=== PATIENT | female | born 1955 | race Asian ===

== ENCOUNTER 2024-10-31 10:27 | Emergency (ER) | payer OTHER, SELFPAY ==
[2024-10-31 10:38] VITALS: BP 159/64
[2024-10-31 11:13] VITALS: BP 129/61
--- NOTE | 2024-10-31 12:16 | ED.GENMED ---
History of Present Illness
General
Chief Complaint: Fainting/Passed Out
Source: patient
Exam Limitations: none
Time Seen by Provider: 10/31/24 11:12
Nursing documentation reviewed up to this point in time: agreed with
History of Present Illness
History of Present Illness:
69-year-old female with history of NIDDM, HTN is here for syncopal episode
Patient states that 2:30 AM she had 'rumbling, upheaval, cramping', went to the bathroom and had a good bowel movement and the cramping went away, she stood up, pulled up her pajama bottoms and the next thing she knows she is on the floor with her
calling her name. Her heard her fall and was there immediately. She states she hit the back of her head and that area is sore but she does not have a general headache. She said shortly after that she got up and she had an episode
of diarrhea, states she did not feel well, she was not steady on her feet so she asked her if she could lay in the hallway for a while and he brought her some water. She drank some water and after about 15 minutes was able to get up and
ambulate back to the bedroom.
The left side of her neck is starting to hurt but other than that she has no bony neck pain. She denies chest pain or trouble breathing. She feels back to normal other than the fact that the back of her head hurts a little.
Past History
Past History
ED Past Medical History: HTN and NIDDM
ED Past Surgical History: Other (Cataract surgery)
Social History
Tobacco: Non-smoker
Alcohol: Occasional
Personal:
Living: with family
Employment: Retired
Review of Systems
Review of Systems
Allergies reviewed?: Yes
All Other Systems: ROS reviewed and negative except as documented in HPI and ROS
Constitutional: Denies fever or fatigue
Respiratory: Denies trouble breathing
Cardiac: Reports syncope; Denies chest pain
ABD/GI: Reports diarrhea; Denies abdominal pain, nausea, vomiting, bloody stools or black stools
: Denies dysuria, frequency, incontinence or urgency
Musculoskeletal: Reports neck pain (right side neck starting to get sore); Denies back pain
Skin: Reports no symptoms
Neurological: Reports no symptoms
Phy Exam
Physical Exam
Physical Exam:
GENERAL: No acute distress. A&Ox3.
CONSTITUTIONAL: Afebrile.
HEADL NC/AT
EYES: clear, conjunctivae normal
ENMT: moist mucus membranes, Pharynx nl
RESPIRATORY: Regular respirations, nonlabored, lungs clear.
CARDIOVASCULAR: Regular rate and rhythm, no murmurs, no rubs.
GI: Soft, nontender, normal BS
MUSCULOSKELETAL: Moves with ease. Well perfused.
SKIN: Warm, dry, normal
PSYCH: Normal mood and affect. Well kept, interactive and appropriate
NEUROLOGIC: Awake, alert and oriented. No focal neurological deficits
Course
Orders/Labs/Results
Orders:
Orders
10/31/24 10:43
EKG [Electrocardiogram (*1)] Urgent
Reason for Study: Syncope
EKG- Treatment ONCE
10/31/24 11:39
Orthostatic VS- Treatment ONCE
0.9% Sodium Chloride 1000 ml [Nss] 1,000 ml IV BOLUS
10/31/24 12:02
Complete Blood Count/With Diff Urgent
Comprehensive Metabolic Panel Urgent
Urinalysis Reflex To Culture Urgent
Date Specimen was Collected: 10/31/24
Time Specimen was Collected: 11:57
Abnormal Lab Results
10/31/24
12:02
RBC 3.87 L 10^6/uL
(4.20-5.40)
Hgb 11.9 L g/dL
(12.0-16.0)
Hct 35.9 L %
(37.0-47.0)
BUN 21 H mg/dl
(7-17)
Glucose 100 H mg/dl
(70-99)
10/31/24 12:02
10/31/24 12:02
Vital Signs
Initial and Last Documented VS:
Initial Vital Signs
Temp Pulse Resp BP Pulse Ox
98.7 F 68 18 159/64 100
10/31/24 10:38 10/31/24 10:38 10/31/24 10:38 10/31/24 10:38 10/31/24 10:38
Last Documented Vital Signs
Temp Pulse Resp BP Pulse Ox
98.7 F 50 13 139/62 100
10/31/24 10:38 10/31/24 12:45 10/31/24 12:45 10/31/24 12:25 10/31/24 12:25
MDM/Problems Addressed
Differential Diagnosis Includes:
vasovagal episode with BM, diarrhea
Dehydration
MDM/Problems Addressed:
69-year-old female with history of NIDDM, HTN is here for syncopal episode
Patient states that 2:30 AM she had 'rumbling, upheaval, cramping', went to the bathroom and had a good bowel movement and the cramping went away, she stood up, pulled up her pajama bottoms and the next thing she knows she is on the floor with her
calling her name. Her heard her fall and was there immediately. She states she hit the back of her head and that area is sore but she does not have a general headache. She said shortly after that she got up and she had an episode
of diarrhea, states she did not feel well, she was not steady on her feet so she asked her if she could lay in the hallway for a while and he brought her some water. She drank some water and after about 15 minutes was able to get up and
ambulate back to the bedroom.
The left side of her neck is starting to hurt but other than that she has no bony neck pain. She denies chest pain or trouble breathing. She feels back to normal other than the fact that the back of her head hurts a little.
Afebrile, NAD. Vital signs stable
EKG: NSR
12:15 PM:
Blood work drawn, unable to get IV in, patient is drinking an entire bottle of water so IV fluids are not necessary.
1:00 PM:
Orthostatics negative
CBC with no clinically significant abnormality
CMP normal
UA negative
History and exam is most consistent with a vasovagal episode. Patient is stable for discharge. She has been out of bed and ambulating well.
*EKG
EKG Intrepretation Date: 10/31/24
Interpretation: normal
Heart Rate: 61
Rate: normal
Rhythm: sinus
Beulah: normal axis
Interval: normal interval
QRS Pattern: normal QRS
Ischemia: no ischemia
*Critical Care Note
Total Time (30-74mins, 75-104mins- exclusive of procedures): Not Applicable
ED Attending Note
-
Portions of this chart may have been created with voice recognition software.� Occasional wrong word or��sound alike� substitutions may have occurred due to the inherent limitations of voice recognition software.
Discharge Plan
Departure
Patient Disposition: Home (Routine Discharge)
Date of Disposition: 10/31/24
Time of Disposition: 12:54
Patient with high blood pressure during this ER visit?: No
Condition: Good
Discharge Problem:
Vasovagal syncope
Instructions: Syncope (fainting), Vasovagal Response (DC)
Referrals:
Dakota Castillo, DO [Family Provider, Family Practice] - As needed
Activity Restrictions/Additional Instructions:
As we discussed, your workup here shows nothing worrisome.
You most likely had a vasovagal fainting episode due to your abdominal cramping/bowel movement and diarrhea.
Interventions
Interventions:
*Risk Screen - Suicide Last Done: 10/31/24 10:38
*General Assessment Last Done: 10/31/24 10:38
*Neglect/Abuse Screening Last Done: 10/31/24 10:38
*ED- Fall Risk Assessment Last Done: 10/31/24 11:25
*ED COVID-19 Vaccine History Last Done: 10/31/24 11:25
*Nursing Disposition Last Done: 10/31/24 13:16
ED- Cardiac Assessment Last Done: 10/31/24 11:25
ED- Neurological Assessment Last Done: 10/31/24 11:25
Discharge Date and Time
Discharge Date/Time: 10/31/24 13:05
Print Language: FRENCH
[2024-10-31 12:22] VITALS: BP 145/57
[2024-10-31 12:22] LABS: % Eosinophils 1.6 % (0-6); % Immature Granulocytes 0.3 % (0-0.5); % Lymphocytes 28.9 % (20.5-51.1); % Monocytes 6.9 % (1.7-9.3); % Neutrophils 61.3 % (42.2-75.2); Absolute Basophils 0.1 10^3/uL (0-0.2); Absolute Eosinophils 0.1 10^3/uL (0-0.7); Absolute Lymphocytes 2.1 10^3/uL (1.2-3.4); Absolute Monocytes 0.5 10^3/uL (0.1-0.6); Absolute Neutrophils 4.5 10^3/uL (1.4-6.5); Hematocrit 35.9 % (37.0-47.0); Hemoglobin 11.9 g/dL (12.0-16.0); Mean Corp Hgb Conc. 33.1 g/dL (33.0-37.0); Mean Corpuscular Hgb 30.7 pg (27.0-31.0); Mean Corpuscular Volume 92.8 fL (81.0-99.0); Mean Platelet Volume 8.3 fL (7.4-10.4); Nucleated Red Blood Cells % 0 %; Platelet Count 328 10^3/uL (130-400); Red Blood Cell Count 3.87 10^6/uL (4.20-5.40); Red Cell Dist. Width 12.2 % (11.5-14.5); White Blood Cell Count 7.3 10^3/uL (4.8-10.8)
[2024-10-31 12:23] VITALS: BP 148/62
[2024-10-31 12:25] VITALS: BP 139/62
[2024-10-31 12:28] VITALS: BP 139/62; BP 145/57; BP 148/62; PULSE 55; PULSE 57; PULSE 58
[2024-10-31 12:38] LABS: Urine Albumin Negative (Neg - Trace); Urine Bilirubin Negative (Negative); Urine Character Clear (Clear); Urine Color Yellow; Urine Glucose Negative (Negative); Urine Ketone Negative (Negative); Urine Leukocyte Negative (Negative); Urine Nitrite Negative (Negative); Urine Occult Blood Negative (Negative); Urine Urobilinogen Negative (Neg - 1+)
[2024-10-31 12:40] LABS: ALT (SGPT) 27 U/L (0-35); AST (SGOT) 36 U/L (14-36); Albumin 4.5 g/dl (3.5-5.0); Alkaline Phosphatase 79 U/L (38-126); Blood Urea Nitrogen 21 mg/dl (7-17); Calcium 9.9 mg/dl (8.4-10.2); Carbon Dioxide 27 mmol/L (22-30); Chloride 104 mmol/L (98-107); Glucose 100 mg/dl (70-99); Sodium 137 mmol/L (135-145); Total Bilirubin 0.4 mg/dl (0.2-1.3); Total Protein 7.8 g/dl (6.3-8.2); eGFR > 60.00
== END 2024-10-31 13:05 | disposition home or self-care (01) ==
LOC: EMR 10:27
PROVIDERS: Registered Nurse; EMERGENCY PHYSICIAN Emergency Medicine; FAMILY PHYSICIAN Family Medicine
DX: R55 Syncope and collapse (principal); E11.9 Type 2 diabetes mellitus without complications; I10 Essential (primary) hypertension
CPT/HCPCS: 99283; 80053; 81003; 85025; 93005